=== PATIENT | male | born 1955 | race Caucasian/White ===

== ENCOUNTER 2024-08-01 20:46 | Emergency (ER) | payer SELFPAY ==
[2024-08-01] MEDS: Albuterol/Ipratropium 3.0-0.5 MG/3 ML Neb Soln NEB ONE (21:22)
== END 2024-08-01 22:22 | disposition home or self-care (01) ==
LOC: JP.ED 20:46
DX: J18.9 Pneumonia, unspecified organism (principal); F17.210 Nicotine dependence, cigarettes, uncomplicated
CPT/HCPCS: 71046; 71046-26; 87428-QW; 94640; 99283; 99285; A9270-GY

== ENCOUNTER 2024-08-07 11:34 | Inpatient (IN) | payer MEDICARE ==
[2024-08-07] MEDS ORDERED: Sodium Chloride 0.9% 10 ML Syringe FLUSH PRN (11:55)
[2024-08-07 12:14] LABS: HEMATOCRIT 44.7 % (38.4-49.7); HEMOGLOBIN 15.6 g/dL (12.9-16.9); MEAN CORPUSCULAR HEMOGLOBIN 32.1 pg (31.6-35.5); MEAN CORPUSCULAR HGB CONC 34.9 g/dL (31.6-35.5); PLATELET COUNT,PLT 332 K/uL (130-375); RED BLOOD CELL COUNT 4.86 M/uL (4.14-5.76); WHITE BLOOD CELL COUNT,WBC 15.4 K/uL (3.2-11.0)
[2024-08-07] MEDS: Sodium Chloride 0.9% 1,000 ML IV ONE ×2 (12:26→15:08)
[2024-08-07] MEDS: Albuterol/Ipratropium 3.0-0.5 MG/3 ML Neb Soln NEB ONE (12:27)
[2024-08-07] MEDS: cefTRIAXone 2 GM in Sodium Chloride 0.9% 50 ML IV ONE (12:27)
[2024-08-07 12:31] LABS: CALCIUM 9.3 mg/dL (8.5-10.1); CREATININE 1.1 mg/dL (0.8-1.3); EST CRCL DRUG DOSING (CG) 57.19 mL/min; POTASSIUM,K 3.4 mmol/L (3.6-5.2)
[2024-08-07 12:39] LABS: BAND ABSOLUTE MAN 0.31 K/uL; BAND PERCENT MAN 2 % (5-11); EOSINOPHILS ABSOLUTE MAN 0.15 K/uL (0.00-0.40); EOSINOPHILS PERCENT MAN 1 % (2-4); LACTIC ACID 1.8 mmol/L (0.4-2.0); LYMPHOCYTES ABSOLUTE MAN 1.69 K/uL (0.8-3.3); LYMPHOCYTES PERCENT MAN 11 % (24-44); MONOCYTES ABSOLUTE MAN 0.62 K/uL (0.20-0.90); MONOCYTES PERCENT MAN 4 % (2-6); NEUTROPHILS ABSOLUTE MAN 12.63 K/uL (1.0-7.6); SEG NEUTROPHILS PERCENT MAN 82 % (36-66)
[2024-08-07 12:51] LABS: ANION GAP 12.4 mmol/L (5.0-14.0); C-REACTIVE PROTEIN 28.21 mg/dL (<0.50)
[2024-08-07] MEDS: Iopamidol 755 Mg/ML 100 ML Bottle IV SCH (13:59)
[2024-08-07] MEDS: Sodium Chloride 0.9% 100 ML IV SCH (13:59)
[2024-08-07] MEDS: Sodium Chloride 0.9% 10 ML Syringe FLUSH ONE (15:38)
[2024-08-07 16:50] LABS: APPEARANCE,URINE CLEAR (CLEAR); BILIRUBIN,URINE NEGATIVE (NEGATIVE); COLOR,URINE YELLOW (YELLOW); GLUCOSE,URINE NEGATIVE (NEGATIVE); KETONES,URINE NEGATIVE (NEGATIVE); LEUKOCYTE ESTERASE,URINE NEGATIVE (NEGATIVE); NITRITE,URINE NEGATIVE (NEGATIVE); OCCULT BLOOD,URINE NEGATIVE (NEGATIVE); PROTEIN,URINE NEGATIVE (NEGATIVE); UROBILINOGEN,URINE 0.2 EU/dL (0.2-1.0)
[2024-08-07 16:52] LABS: AMORPHOUS SEDIMENT,URINE NOT SEEN; BACTERIA,URINE NOT SEEN; EPITHELIAL CELLS,URINE RARE; MUCUS,URINE NOT SEEN; RBC,URINE 0-5 (0-5); WBC,URINE 0-5 (0-5)
[2024-08-08] MEDS: Albuterol 0.083% 2.5 MG/3 ML Neb Soln NEB PRN (04:57)
[2024-08-08 05:22] LABS: BASOPHILS ABSOLUTE AUTO 0.04 K/uL (0.00-0.10); BASOPHILS PERCENT AUTO 0.2 % (0.1-1.3); EOSINOPHILS ABSOLUTE AUTO 0.15 K/uL (0.00-0.40); EOSINOPHILS PERCENT AUTO 0.9 % (0.0-5.4); HEMATOCRIT 43.3 % (38.4-49.7); HEMOGLOBIN 14.8 g/dL (12.9-16.9); IMMATURE GRAN ABSOLUTE AUTO 0.13 K/uL (0.00-0.23); IMMATURE GRAN PERCENT AUTO 0.8 % (0.0-0.7); LYMPHOCYTES ABSOLUTE AUTO 1.22 K/uL (0.8-3.3); LYMPHOCYTES PERCENT AUTO 7.5 % (11.4-47.7); MEAN CORPUSCULAR HGB CONC 34.2 g/dL (31.6-35.5); MEAN CORPUSCULAR VOLUME 93.7 fL (81.4-99.0); MONOCYTES ABSOLUTE AUTO 0.54 K/uL (0.20-0.90); MONOCYTES PERCENT AUTO 3.3 % (3.3-12.6); NEUTROPHILS ABSOLUTE AUTO 14.19 K/uL (1.0-7.6); NEUTROPHILS PERCENT AUTO 87.3 % (40.0-78.1); PLATELET COUNT,PLT 309 K/uL (130-375); RED BLOOD CELL COUNT 4.62 M/uL (4.14-5.76); WHITE BLOOD CELL COUNT,WBC 16.3 K/uL (3.2-11.0)
[2024-08-08 05:42] LABS: A/G RATIO 0.5 (1.2-2.2); ALANINE AMINOTRANSFERASE,ALT 69 U/L (12-78); ALBUMIN 2.2 g/dL (3.4-5.0); ALKALINE PHOSPHATASE 106 U/L (46-116); ASPARTATE AMNIOTRANSFERASE,AST 44 U/L (15-37); BILIRUBIN TOTAL 0.6 mg/dL (0.2-1.0); BLOOD UREA NITROGEN,BUN 16 mg/dL (7-18); CALCIUM 8.7 mg/dL (8.5-10.1); CARBON DIOXIDE,CO2 31 mmol/L (21-32); CHLORIDE,CL 96 mmol/L (100-108); CREATININE 0.9 mg/dL (0.8-1.3); ESTIMATED GFR 92 mL/min (>60); GLUCOSE RANDOM 119 mg/dL (74-106); POTASSIUM,K 3.6 mmol/L (3.6-5.2); SODIUM,NA 134 mmol/L (140-148)
[2024-08-08 06:08] LABS: ANION GAP 10.6 mmol/L (5.0-14.0)
[2024-08-08] MEDS: Albuterol/Ipratropium 3.0-0.5 MG/3 ML Neb Soln NEB SCH (06:57)
[2024-08-08] MEDS: Codeine/guaiFENesin 10-100 MG/5 ML Syrup 5 ML Cup PO PRN (10:56)
[2024-08-08] MEDS ORDERED: cefTRIAXone 1 GM in Sodium Chloride 0.9% 50 ML IV SCH (11:00)
[2024-08-08] MEDS: cefTRIAXone 2 GM in Sodium Chloride 0.9% 50 ML IV SCH (11:02)
[2024-08-08] MEDS: Azithromycin 250 MG Tab PO SCH (16:27)
[2024-08-09] MEDS: Pseudoephedrine 30 MG Tab PO PRN (11:55)
[2024-08-09] MEDS: methylPREDNISolone Sodium Succinate 40 MG/1 ML SDV IVPUSH SCH (13:05)
[2024-08-10 05:57] LABS: HEMATOCRIT 40.8 % (38.4-49.7); HEMOGLOBIN 13.9 g/dL (12.9-16.9); MEAN CORPUSCULAR HEMOGLOBIN 31.7 pg (31.6-35.5); MEAN CORPUSCULAR HGB CONC 34.1 g/dL (31.6-35.5); MEAN CORPUSCULAR VOLUME 93.2 fL (81.4-99.0); PLATELET COUNT,PLT 360 K/uL (130-375); RED BLOOD CELL COUNT 4.38 M/uL (4.14-5.76); WHITE BLOOD CELL COUNT,WBC 11.9 K/uL (3.2-11.0)
[2024-08-10 06:19] LABS: ALANINE AMINOTRANSFERASE,ALT 77 U/L (12-78); ALBUMIN 2.2 g/dL (3.4-5.0); ALKALINE PHOSPHATASE 94 U/L (46-116); ASPARTATE AMNIOTRANSFERASE,AST 32 U/L (15-37); BILIRUBIN TOTAL 0.4 mg/dL (0.2-1.0); BLOOD UREA NITROGEN,BUN 17 mg/dL (7-18); CALCIUM 9.3 mg/dL (8.5-10.1); CARBON DIOXIDE,CO2 33 mmol/L (21-32); CHLORIDE,CL 99 mmol/L (100-108); CREATININE 0.9 mg/dL (0.8-1.3); ESTIMATED GFR 92 mL/min (>60); GLUCOSE RANDOM 182 mg/dL (74-106); POTASSIUM,K 4.2 mmol/L (3.6-5.2); PROTEIN TOTAL,TP 7.1 g/dL (6.4-8.2); SODIUM,NA 137 mmol/L (140-148)
[2024-08-10 06:20] LABS: A/G RATIO 0.5 (1.2-2.2); ANION GAP 9.2 mmol/L (5.0-14.0)
[2024-08-10 06:30] LABS: ATYPICAL LYMPHOCYTES RARE; LYMPHOCYTES ABSOLUTE MAN 0.95 K/uL (0.8-3.3); LYMPHOCYTES PERCENT MAN 8 % (24-44); MONOCYTES ABSOLUTE MAN 0.12 K/uL (0.20-0.90); MONOCYTES PERCENT MAN 1 % (2-6); NEUTROPHILS ABSOLUTE MAN 10.83 K/uL (1.0-7.6); SEG NEUTROPHILS PERCENT MAN 91 % (36-66)
[2024-08-11 05:52] LABS: BASOPHILS PERCENT AUTO 0.1 % (0.1-1.3); HEMATOCRIT 41.1 % (38.4-49.7); HEMOGLOBIN 13.9 g/dL (12.9-16.9); IMMATURE GRAN ABSOLUTE AUTO 0.11 K/uL (0.00-0.23); IMMATURE GRAN PERCENT AUTO 0.7 % (0.0-0.7); LYMPHOCYTES ABSOLUTE AUTO 1.13 K/uL (0.8-3.3); LYMPHOCYTES PERCENT AUTO 7.7 % (11.4-47.7); MEAN CORPUSCULAR HEMOGLOBIN 31.7 pg (31.6-35.5); MEAN CORPUSCULAR HGB CONC 33.8 g/dL (31.6-35.5); MEAN CORPUSCULAR VOLUME 93.8 fL (81.4-99.0); MONOCYTES PERCENT AUTO 2.7 % (3.3-12.6); NEUTROPHILS ABSOLUTE AUTO 13.01 K/uL (1.0-7.6); NEUTROPHILS PERCENT AUTO 88.8 % (40.0-78.1); PLATELET COUNT,PLT 390 K/uL (130-375); RED BLOOD CELL COUNT 4.38 M/uL (4.14-5.76); WHITE BLOOD CELL COUNT,WBC 14.7 K/uL (3.2-11.0)
[2024-08-11 05:54] LABS: BASOPHILS ABSOLUTE AUTO 0.02 K/uL (0.00-0.10)
[2024-08-11 06:02] LABS: CALCIUM 9.4 mg/dL (8.5-10.1); EST CRCL DRUG DOSING (CG) 62.91 mL/min; POTASSIUM,K 4.2 mmol/L (3.6-5.2)
[2024-08-11 06:05] LABS: ANION GAP 13.2 mmol/L (5.0-14.0)
[2024-08-11] MEDS: Doxycycline 100 MG in Sodium Chloride 0.9% 100 ML IV SCH (10:19)
[2024-08-12 05:49] LABS: HEMOGLOBIN 13.5 g/dL (12.9-16.9); IMMATURE GRAN ABSOLUTE AUTO 0.08 K/uL (0.00-0.23); IMMATURE GRAN PERCENT AUTO 0.7 % (0.0-0.7); LYMPHOCYTES ABSOLUTE AUTO 0.75 K/uL (0.8-3.3); MEAN CORPUSCULAR HEMOGLOBIN 31.9 pg (31.6-35.5); MEAN CORPUSCULAR HGB CONC 33.8 g/dL (31.6-35.5); MEAN CORPUSCULAR VOLUME 94.6 fL (81.4-99.0); MONOCYTES ABSOLUTE AUTO 0.22 K/uL (0.20-0.90); NEUTROPHILS ABSOLUTE AUTO 9.71 K/uL (1.0-7.6); NEUTROPHILS PERCENT AUTO 90.3 % (40.0-78.1); PLATELET COUNT,PLT 397 K/uL (130-375); RED BLOOD CELL COUNT 4.23 M/uL (4.14-5.76); WHITE BLOOD CELL COUNT,WBC 10.8 K/uL (3.2-11.0)
[2024-08-12 06:04] LABS: A/G RATIO 0.5 (1.2-2.2); ALANINE AMINOTRANSFERASE,ALT 111 U/L (12-78); ALBUMIN 2.2 g/dL (3.4-5.0); ALKALINE PHOSPHATASE 72 U/L (46-116); ANION GAP 7.7 mmol/L (5.0-14.0); ASPARTATE AMNIOTRANSFERASE,AST 36 U/L (15-37); BILIRUBIN TOTAL 0.3 mg/dL (0.2-1.0); BLOOD UREA NITROGEN,BUN 24 mg/dL (7-18); CALCIUM 9.1 mg/dL (8.5-10.1); CARBON DIOXIDE,CO2 31 mmol/L (21-32); CHLORIDE,CL 101 mmol/L (100-108); EST CRCL DRUG DOSING (CG) 62.91 mL/min; ESTIMATED GFR 81 mL/min (>60); GLUCOSE RANDOM 158 mg/dL (74-106); POTASSIUM,K 4.4 mmol/L (3.6-5.2); PROTEIN TOTAL,TP 6.5 g/dL (6.4-8.2); SODIUM,NA 140 mmol/L (140-148)
[2024-08-13] MEDS: Doxycycline 100 MG Cap PO SCH (09:58)
[2024-08-13] MEDS: predniSONE 20 MG Tab PO SCH (09:58)
== END 2024-08-13 13:30 | disposition home or self-care (01) | DRG 871 ==
LOC: JP.ED 11:34 → JP.MS 16:50
PROVIDERS: ADMIT Internal Medicine; ATTEND Internal Medicine
DX: A41.9 Sepsis, unspecified organism (principal); J18.9 Pneumonia, unspecified organism; J96.01 Acute respiratory failure with hypoxia; H26.9 Unspecified cataract; E86.0 Dehydration; F17.200 Nicotine dependence, unspecified, uncomplicated; H54.7 Unspecified visual loss; Z90.49 Acquired absence of other specified parts of digestive tract; Z98.890 Other specified postprocedural states; Z90.89 Acquired absence of other organs
CPT/HCPCS: 36415; 71275; 71275-26; 80048; 80053; 81001; 83605; 83880; 84145; 84484; 85025; 86140; 87040; 87070; 87205; 87428-QW; 93005; 93010; 93306; 94640; 94667; 96361; 96365; 99285; 99285-25; A7290-GY; A9270-GY; J0696; J2919; J3490; J7030; J7512; Q9967

== ENCOUNTER 2024-09-15 21:44 | Emergency (ER) | payer MEDICARE ==
[2024-09-15 22:20] LABS: BASOPHILS ABSOLUTE AUTO 0.04 K/uL (0.00-0.10); BASOPHILS PERCENT AUTO 0.5 % (0.1-1.3); EOSINOPHILS ABSOLUTE AUTO 0.56 K/uL (0.00-0.40); EOSINOPHILS PERCENT AUTO 7.2 % (0.0-5.4); HEMATOCRIT 42.8 % (38.4-49.7); HEMOGLOBIN 14.5 g/dL (12.9-16.9); IMMATURE GRAN ABSOLUTE AUTO 0.02 K/uL (0.00-0.23); IMMATURE GRAN PERCENT AUTO 0.3 % (0.0-0.7); LYMPHOCYTES ABSOLUTE AUTO 2.25 K/uL (0.8-3.3); LYMPHOCYTES PERCENT AUTO 28.8 % (11.4-47.7); MEAN CORPUSCULAR HEMOGLOBIN 31.5 pg (31.6-35.5); MEAN CORPUSCULAR HGB CONC 33.9 g/dL (31.6-35.5); MEAN CORPUSCULAR VOLUME 92.8 fL (81.4-99.0); MONOCYTES ABSOLUTE AUTO 0.84 K/uL (0.20-0.90); MONOCYTES PERCENT AUTO 10.8 % (3.3-12.6); NEUTROPHILS PERCENT AUTO 52.4 % (40.0-78.1); PLATELET COUNT,PLT 191 K/uL (130-375); RED BLOOD CELL COUNT 4.61 M/uL (4.14-5.76); WHITE BLOOD CELL COUNT,WBC 7.8 K/uL (3.2-11.0)
[2024-09-15 22:44] LABS: CALCIUM 9.5 mg/dL (8.5-10.1); CREATININE 1.1 mg/dL (0.8-1.3); EST CRCL DRUG DOSING (CG) 59.26 mL/min; POTASSIUM,K 3.2 mmol/L (3.6-5.2); TROPONIN I HIGH SENSITIVITY 8.8 pg/mL (<=60.3)
[2024-09-15 22:45] LABS: ANION GAP 13.2 mmol/L (5.0-14.0)
[2024-09-15] MEDS: Albuterol/Ipratropium 3.0-0.5 MG/3 ML Neb Soln NEB ONE (23:13)
[2024-09-15] MEDS: methylPREDNISolone Sodium Succinate 125 MG/2 ML SDV IM ONE (23:30)
== END 2024-09-16 00:10 | disposition home or self-care (01) ==
LOC: JP.ED 21:44
DX: J45.909 Unspecified asthma, uncomplicated (principal); Z79.899 Other long term (current) drug therapy
CPT/HCPCS: 36415; 71045; 80048; 84484; 85025; 93005; 94640; 96372; 99285; A9270; J2919